=== PATIENT | female | born 1975 | race Caucasian/White ===

== ENCOUNTER 2019-07-08 18:54 | Emergency (ER) | payer OTHER ==
[~2019-07-08] VITALS: Ht 160 cm; Wt 54.4 kg
[2019-07-08 19:22] VITALS: BP 117/63
[2019-07-08] MEDS ORDERED: IBUPROFEN 600 MG TABLET PO ONE ×2 (20:00→20:40)
[2019-07-08] MEDS ORDERED: clonazePAM 1 MG TABLET PO ONE (20:00)
[2019-07-08] MEDS ORDERED: ALBUTEROL FS 2.5 MG/3 ML VIAL.NEB NEB ONE (20:00)
[2019-07-08] MEDS ORDERED: IPRATROPIUM NEB FS 0.5 MG/2.5 ML AMPUL.NEB NEB ONE (20:00)
[2019-07-08] MEDS ORDERED: IPRATROPIUM NEB FS 0.5 MG/2.5 ML AMPUL.NEB ONE (20:12)
[2019-07-08] MEDS ORDERED: ALBUTEROL FS 2.5 MG/3 ML VIAL.NEB ONE (20:12)
[2019-07-08] MEDS ORDERED: clonazePAM 1 MG TABLET ONE (20:40)
[2019-07-08] MEDS ORDERED: DOXYCYCLINE HYCLATE (100 MG) 100 MG TABLET ONE (20:40)
[2019-07-08] MEDS ORDERED: LORAZEPAM 1 MG TABLET ONE (20:41)
[2019-07-08] MEDS ORDERED: DOXYCYCLINE HYCLATE (100 MG) 100 MG TABLET PO ONE (21:00)
--- NOTE | 2019-07-08 21:18 | NUR ---
Patient discharged to home in stable condition. Written and verbal after care instructions given. Patient verbalizes understanding of instruction.
== END 2019-07-08 21:37 | disposition home or self-care (01) ==
LOC: ER 18:55
DX: J18.1 Lobar pneumonia, unspecified organism (principal); F13.20 Sedative, hypnotic or anxiolytic dependence, uncomplicated; F43.10 Post-traumatic stress disorder, unspecified; F41.0 Panic disorder [episodic paroxysmal anxiety]
CPT/HCPCS: 71045-TC